=== PATIENT | male | born 1955 | race Caucasian/White ===

== ENCOUNTER 2017-12-03 06:45 | Day surgery (SDC) | payer OTHER ==
[~2017-12-03] VITALS: Ht 198.1 cm; Wt 101.4 kg
[~2017-12-03 06:45] MED LIST: ASPI81CH PO; CYCL10 PO; Diclofenac Sodi50 MG PO; HYDACE5 PO; LEVSOD75 PO
[2017-12-03] MEDS ORDERED: ASPI81CH (07:54)
== END 2017-12-03 09:36 | disposition home or self-care (01) ==
LOC: ORSCSDS 06:45
PROVIDERS: Orthopaedic Surgery
PROC: 01N50ZZ Release Median Nerve, Open Approach (ICD-10-PCS; principal; 2017-12-03 08:30)
DX: G56.01 Carpal tunnel syndrome, right upper limb (principal); E03.9 Hypothyroidism, unspecified; G47.33 Obstructive sleep apnea (adult) (pediatric); Z79.899 Other long term (current) drug therapy; Z87.891 Personal history of nicotine dependence
CPT/HCPCS: J0690; J2250; J3010; J7120

== ENCOUNTER → 2018-01-16 | Outpatient (CLI) | payer OTHER ==
[~2018-01-16] MED LIST changes: +ASPI81CH
== END | disposition home or self-care (01) ==
LOC: LAB 17:39 → LAB SHORT 17:39
DX: J31.0 Chronic rhinitis (principal)
CPT/HCPCS: 87070; 87205

== ENCOUNTER 2022-08-14 05:53 | Day surgery (SDC) | payer OTHER ==
[~2022-08-14] VITALS: Ht 167.6 cm; Wt 102.0 kg
[~2022-08-14 05:53] MED LIST changes: +BACLOFEN10 M1 PO; +Cymbalta20 MG PO; +IBUP200 PO; +LOSA25 PO; +MELO7.5 PO
--- NOTE | 2022-08-14 08:48 | NUR ---
08/14/22 0848 Andre Ocampo SPINAL ATTEMPTED WITH CONVERSION TO GENERAL.
--- NOTE | 2022-08-14 17:16 | NUR ---
SHIFT SUMMARY PT HAS DONE WELL POST OP. UP TO CHAIR FOR LUNCH. WORKED w/ THERAPY THIS AFTERNOON. PAIN WELL CONTROLLED. DONY DUFF w/ SCANT DRNG. NO NEW DRNG SINCE ARRIVAL.
[2022-08-15 04:44] LABS: BASOPHILS ABSOLUTE AUTO 0.03 K/mm3 (0.00-0.23); BASOPHILS PERCENT AUTO 0 % (0-2); EOSINOPHILS ABSOLUTE AUTO 0.01 K/mm3 (0.00-0.68); EOSINOPHILS PERCENT AUTO 0 % (0-6); Hematocrit 44.5 % (37.0-53.0); Hemoglobin 14.9 g/dL (13.5-17.5); IMMATURE GRAN ABSOLUTE AUTO 0.07 K/mm3 (0.00-0.10); IMMATURE GRAN PERCENT AUTO 0 % (0-1); LYMPHOCYTES ABSOLUTE AUTO 1.71 K/mm3 (0.84-5.20); LYMPHOCYTES PERCENT AUTO 10 % (21-46); MONOCYTES ABSOLUTE AUTO 1.47 K/mm3 (0.16-1.47); MONOCYTES PERCENT AUTO 9 % (4-13); Mean Corpuscular HGB 32.6 pg (26.0-34.0); Mean Corpuscular HGB Conc 33.5 g/dL (31.5-36.5); Mean Corpuscular Volume 97 fL (80-100); Mean Platelet Volume 10.4 fL (9.1-12.4); NEUTROPHILS ABSOLUTE AUTO 13.48 K/mm3 (1.96-9.15); NEUTROPHILS PERCENT AUTO 80 % (41-73); Platelet Count 251 K/mm3 (150-400); RDW Coefficient Variation 12.7 % (11.7-14.2); RDW Standard Deviation 45.8 fL (35.1-46.3); Red Blood Cell Count 4.57 M/mm3 (4.30-5.90); White Blood Cell Count 16.77 K/mm3 (4.00-11.30)
[2022-08-15 05:03] LABS: Bun/Creatinine Ratio 17.3 (12.0-20.0); Calcium, Blood 8.4 mg/dL (8.5-10.1); Creatinine, Blood 0.75 mg/dL (0.60-1.20); Magnesium, Blood 1.9 mg/dL (1.6-2.4); Potassium, Blood 3.9 mmol/L (3.5-5.5)
--- NOTE | 2022-08-15 05:13 | NUR ---
SHIFT SUMMARY A/O X4- SBA W/ FWW AND GB. POD1 L TOTAL HIP, PRINEO DRESSING IN PLACE W/ SCANT AMOUNT OF DRAINAGE. PAIN MANAGED W/ PO PAIN MEDICATIONS. AMBULATING WELL, TOLERATING PO INTAKE, AND VOIDING WELL. VITAL SIGNS STABLE. WILL CONTINUE TO MONITOR AND REPORT TO ONCOMING RN.
[2022-08-15] MEDS ORDERED: ASPI81CH PO (09:21)
[2022-08-15] MEDS ORDERED: ACET500 PO (09:22)
[2022-08-15] MEDS ORDERED: OXYC5 PO (09:22)
--- NOTE | 2022-08-15 10:00 | NUR ---
DISCHARGE PT HAS CLEARED THERAPY. PAIN WELL CONTROLLED. EATING, DRINKING, & VOIDING WELL. NATHANIEL & ETTA MARTINEZ SENT w/ PT. ESCRIPT SENT PER DR MORELOS. PT PASSIVE IN LEARNING INSTRUCTIONS. STATES HE WILL DO WHAT HE WANTS WHEN AT HOME. CONT's TO BE IMPULSIVE HERE. ESCORTED OUT VIA W/C.
== END 2022-08-15 10:10 | disposition home or self-care (01) ==
LOC: ORSCMMR 05:53 → ORD 07:30 → SURS 10:51 → ORSCMMR 08-15 10:10
PROVIDERS: Orthopaedic Surgery
PROC: 0SRB0JZ Replacement of Left Hip Joint with Synthetic Substitute, Open Approach (ICD-10-PCS; principal; 2022-08-14 07:30)
DX: M16.12 Unilateral primary osteoarthritis, left hip (principal); I10 Essential (primary) hypertension; Z79.899 Other long term (current) drug therapy; E66.9 Obesity, unspecified; Z68.36 Body mass index [BMI] 36.0-36.9, adult
CPT/HCPCS: 36415; 72170; 80048; 83735; 85025; 93005; 93010; 94660; 97110; 97116; 97162; A9270; C1776; J0171; J0690; J0735; J1100; J1885; J2250; J2405; J2704; J2795; J3010; J7120

== ENCOUNTER 2022-12-09 17:46 | Emergency (ER) | payer OTHER ==
[~2022-12-09] VITALS: Ht 167.6 cm; Wt 99.8 kg
[~2022-12-09 17:46] MED LIST changes: +ACET500 PO; +OXYC5 PO
== END 2022-12-09 20:32 | disposition home or self-care (01) ==
LOC: ER 17:46
DX: S53.401A Unspecified sprain of right elbow, initial encounter (principal); X50.9XXA Other and unspecified overexertion or strenuous movements or postures, initial encounter; E03.9 Hypothyroidism, unspecified; I10 Essential (primary) hypertension; Z88.8 Allergy status to other drugs, medicaments and biological substances; Z79.899 Other long term (current) drug therapy; Z79.82 Long term (current) use of aspirin; Z87.891 Personal history of nicotine dependence
CPT/HCPCS: 73070; J1885

== ENCOUNTER 2024-11-17 10:31 | Emergency (ER) | payer OTHER ==
[~2024-11-17] VITALS: Ht 172.7 cm; Wt 99.8 kg
== END 2024-11-17 10:49 | disposition left against medical advice (07) ==
LOC: ER 10:31
DX: Z48.03 Encounter for change or removal of drains (principal); Z87.891 Personal history of nicotine dependence
CPT/HCPCS: 99281